=== PATIENT | female | born 1975 | race Caucasian/White ===

== ENCOUNTER 2016-11-26 16:46 | Emergency (ER) | payer OTHER ==
[~2016-11-26] VITALS: Ht 160 cm; Wt 56.7 kg
[~2016-11-26 16:46] MED LIST: AUGMENTIN 875-1 EACH PO; IBUPROFEN800 M1 PO
--- NOTE | 2016-11-26 17:37 | ED GI/GU/ABDOMINAL COMPLAINT ---
History of Present Illness General Chief Complaint: Female Urogenital Problems Stated Complaint: 7 WEEKS ,C/O CRAMPING AND BLEEDING Source: patient Exam Limitations: no limitations Vital Signs & Intake/Output Vital Signs & Intake/Output Vital Signs Date Time Temp Pulse Resp B/P Pulse O2 O2 Flow FiO2 Ox Delivery Rate 11/26 2040 97.8 70 18 111/75 100 Room Air 11/26 1657 98.0 69 16 107/79 100 Room Air ED Intake and Output 11/27 0000 11/26 1200 Intake Total 0 Output Total Balance 0 Intake, Oral 0 Patient 125 lb Weight Allergies Coded Allergies: No Known Drug Allergies (05/08/16) Reconcile Medications Vit No.130/Iron/FA ( Tablet) 27 MG IRON-800 MCG TABLET 1 TAB PO DAILY (Reported) Triage Note: PT TO ED FOR ABD CRAMPING AND SPOTTING, PER PT SHE IS 7 WEEKS AND IS CONCERNED ABOUT A MISCARRIAGE. , OB IS [facility] [phone]. PT REPORTING ONE EPISODE OF SPOTTING THIS AM AND THEN ONE EPISODE LAST WEEK AFTER INTERCOURSE. Triage Nurses Notes Reviewed? yes ? Y Is pt currently ? No HPI: 41-year-old female, with one miscarriage approximately one year ago, currently proximally 7 weeks , last menstrual period was October 08, she took a home test and it was positive. She has yet to follow-up with her SHIPPING PROCESSOR and does not have a documented intrauterine as of yet. She had mild vaginal spotting with blood and mild lower back pain. She denies any abdominal or pelvic pain, no abnormal discharge. She has no fever or flulike illness. No previous pelvic surgeries or abdominal surgeries. ([address]) Past History Travel History Traveled to [place] past 21 day No Medical History Any Pertinent Medical History? none Neurological: NONE EENT: NONE Cardiovascular: NONE Respiratory: NONE Gastrointestinal: NONE Hepatic: NONE Renal: NONE Musculoskeletal: NONE Psychiatric: NONE Endocrine: NONE Other Medical Hx: Miscarriage Surgical History Surgical History: none Psychosocial History What is your primary language Chinese Tobacco Use: Never used ETOH Use: denies use Illicit Drug Use: denies illicit drug use Family History Hx Contributory? No ([address]) Review of Systems Review of Systems Constitutional: Reports: see HPI. EENTM: Reports: no symptoms. Respiratory: Reports: no symptoms. Cardiovascular: Reports: no symptoms. GI: Reports: no symptoms. Genitourinary: Reports: no symptoms. Musculoskeletal: Reports: no symptoms. Skin: Reports: no symptoms. Neurological/Psychological: Reports: no symptoms. Hematologic/Endocrine: Reports: no symptoms. Immunologic/Allergic: Reports: no symptoms. All Other Systems: Reviewed and Negative ([address]) Physical Exam Physical Exam Respiratory: normal breath sounds, chest non-tender, no respiratory distress Cardiovascular: regular rate/rhythm Gastrointestinal: normal bowel sounds, soft, non-tender, no organomegaly Comments: Well-developed well-nourished no apparent distress. HEENT: Atraumatic, extraocular motion intact Neck: Supple, no lymphadenopathy Back: Nontender Respiratory: No respiratory distress Extremities: No edema, full range of motion Neuro: Alert and oriented x3 Psych: Mood affect normal, normal memory normal judgment. Skin: Warm and dry, no rash on exposed skin Core Measures ACS in differential dx? No Severe Sepsis Present: No Septic Shock Present: No ([address]) Progress Differential Diagnosis: AAA, AMI, appendicitis, biliary colic, bowel obstruction , colon cancer, cholecystitis, diverticulitis, ectopic , endometritis, esophageal varices, gastritis, hepatitis, hernia, hemorrhoids, ischemic bowel, inflamm bowel dis, intrauterine , kidney stone, Kristine-Luciana tear, ovarian cyst, ovarian torsion, pancreatitis, PID/cervicitis, peptic ulcer, PUD/ GERD, perforated viscous, SBO, threatened AB, UTI/pyelo Plan of Care: Orders Procedure Date/time Status HUMAN BETA HCG TITRE 11/26 1731 Complete COMPREHENSIVE METABOLIC PANEL 11/26 173 Complete CBC WITHOUT DIFFERENTIAL 11/26 1730 Complete RHOGAM WORK-UP 11/26 173 Complete Laboratory Tests 11/26/16 1739: Anion Gap 10, Estimated GFR > 60, BUN/Creatinine Ratio 17.1, Glucose 83, Calcium 9.4, Total Bilirubin 0.5, AST 14, ALT 27, Alkaline Phosphatase 78, Total Protein 6.9, Albumin 4.0, Globulin 2.9, Albumin/Globulin Ratio 1.4, Beta HCG, Quant 35275.0, CBC w Diff NO MAN DIFF REQ, RBC 4.76, MCV 91.4, MCH 30.6, RDW 12.9, MPV 9.3, Gran % 71.5, Lymphocytes % 20.0 L, Monocytes % 7.5, Eosinophils % 0.8, Basophils % 0.2, Absolute Granulocytes 7.6 H, Absolute Lymphocytes 2.1, Absolute Monocytes 0.8 H, Absolute Eosinophils 0.1, Absolute Basophils 0, PUBS MCHC 33.4 Diagnostic Imaging: Viewed by Me: Ultrasound. Discussed w/RAD: Ultrasound. Radiology Impression: PATIENT: RICHARD WHITEHEAD PRESENT AGE: 41 PATIENT ACCOUNT NO: [id number] : 77 LOCATION: [facility] ORDERING PHYSICIAN: MARTINA HOYOS SERVICE DATE: 11/26/16 EXAM TYPE: US - US TRANSVAG EXAMINATION: US TRANSVAGINAL CLINICAL INFORMATION: with pain and bleeding. Evaluate for an ectopic . LMP: 2015 COMPARISON: No relevant prior studies are available for comparison. TECHNIQUE: Multiple images of the gravid uterus were obtained transabdominally and transvaginally utilizing real-time ultrasonography. Transvaginal ultrasound was required to better visualize the uterus and ovaries. FINDINGS: An early intrauterine is identified. The crown-rump length measures 0.9 cm, corresponding to a gestational age of 7 weeks 0 days with an NAGA of 07/15/2017. The heart rate is identified at 135 bpm. The yolk sac is unremarkable and measures 0.3 cm. There is no evidence of subchorionic hemorrhage. The cervical length measures 4.1 cm. The right ovary is sonographically unremarkable and measures 3.7 x 2.4 x 3.1 cm (volume = 14.3 mL). There is Doppler detectable vascular flow to the right ovary. The left ovary is sonographically unremarkable and measures 3.2 x 1.6 x 2.4 cm (volume = 6.3 mL). There is Doppler detectable vascular flow to the left ovary. There is no free fluid in the pelvis. IMPRESSION: Single live IUP with an estimated gestational age of 7 weeks 0 days with an NAGA of 07/15/2017. The heart rate is 135 bpm. DICTATED BY: VIRGINIA RAMIREZ MD DATE Initial ED EKG: none Comments: B-HCG 15,000. Ultrasound ordered -single IUP noted, patient is comfortable on reevaluation, discussed with the possibility of miscarriage even though labs and ultrasound are appropriate giving patient states. She will follow-up with her SHIPPING PROCESSOR on Sunday as scheduled. PT SEEN BY DR CALDERON WELL. ([address]) Departure Departure Disposition: HOME OR SELF CARE Condition: Stable Clinical Impression Primary Impression: Threatened miscarriage Referrals: PATIENT HAS NO PRIMARY CARE DR (PCP/Family) Additional Instructions: follow-up with your SHIPPING PROCESSOR doctor on Sunday as scheduled Return with worsening pelvic pain, cramping sensation, vaginal bleeding. Rest avoid strenuous physical activity or heavy lifting Departure Forms: Customer Survey General Discharge Information ([address]) PA/ELECTROLYSIST Co-Sign Statement Statement: ED Attending supervision documentation- [] I saw and evaluated the patient. I have also reviewed all the pertinent lab results and diagnostic results. I agree with the findings and the plan of care as documented in the PA's/ELECTROLYSIST's documentation. [x] I have reviewed the ED Record and agree with the PA's/ELECTROLYSIST's documentation. [] Additions or exceptions (if any) to the PAs/ELECTROLYSIST's note and plan are summarized below: [] (KVNG DEGROOT,ALYCIA Govea)
[2016-11-26] MEDS ORDERED: PRENATAL TABLE1 EAC2 PO (17:47)
[2016-11-26 17:50] LABS: ABSOLUTE BASOPHIL COUNT 0 /CUMM (0.0-0.2); ABSOLUTE EOSINOPHIL COUNT 0.1 /CUMM (0.0-0.7); ABSOLUTE GRANULOCYTE CT 7.6 /CUMM (1.4-6.5); ABSOLUTE LYMPH COUNT 2.1 /CUMM (1.2-3.4); ABSOLUTE MONOCYTE COUNT 0.8 /CUMM (0.10-0.60); BASOPHIL % 0.2 % (0.0-2.0); EOSINOPHIL % 0.8 % (0-5); GRANULOCYTE % 71.5 % (42.2-75.2); HEMATOCRIT 43.5 % (37-47); MEAN CORPUSCULAR HGB 30.6 PG (27.0-31.0); MEAN CORPUSCULAR HGB CONC 33.4 G/DL (33.0-37.0); MEAN CORPUSCULAR VOLUME 91.4 FL (81.0-99.0); MEAN PLATELET VOLUME 9.3 FL (7.4-10.4); PLATELET COUNT 207 /CUMM (130-400); RBC DISTRIBUTION WIDTH 12.9 % (11.5-14.5); RED BLOOD CELL CT 4.76 /CUMM (4.20-5.40); WHITE BLOOD CELL COUNT 10.6 /CUMM (4.8-10.8)
--- NOTE | 2016-11-26 20:28 | ULTRASOUND REPORT ---
EXAMINATION: US TRANSVAGINAL CLINICAL INFORMATION: with pain and bleeding. Evaluate for an ectopic . LMP: 10/08/2016 COMPARISON: No relevant prior studies are available for comparison. TECHNIQUE: Multiple images of the gravid uterus were obtained transabdominally and transvaginally utilizing real-time ultrasonography. Transvaginal ultrasound was required to better visualize the uterus and ovaries. FINDINGS: An early intrauterine is identified. The crown-rump length measures 0.9 cm, corresponding to a gestational age of 7 weeks 0 days with an NAGA of 07/15/2017. The heart rate is identified at 135 bpm. The yolk sac is unremarkable and measures 0.3 cm. There is no evidence of subchorionic hemorrhage. The cervical length measures 4.1 cm. The right ovary is sonographically unremarkable and measures 3.7 x 2.4 x 3.1 cm (volume = 14.3 mL). There is Doppler detectable vascular flow to the right ovary. The left ovary is sonographically unremarkable and measures 3.2 x 1.6 x 2.4 cm (volume = 6.3 mL). There is Doppler detectable vascular flow to the left ovary. There is no free fluid in the pelvis. IMPRESSION: Single live IUP with an estimated gestational age of 7 weeks 0 days with an NAGA of 07/15/2017. The heart rate is 135 bpm.
[2016-11-26 20:41] VITALS: BP 111/75
== END 2016-11-26 20:42 ==
LOC: ERH 16:46
PROVIDERS: Physician Assistant Surgical
DX: O20.0 Threatened abortion (principal); Z3A.01 Less than 8 weeks gestation of pregnancy
CPT/HCPCS: 76817

== ENCOUNTER 2017-03-03 22:56 | Emergency (ER) | payer OTHER ==
[~2017-03-03] VITALS: Ht 157.5 cm; Wt 59.0 kg
[~2017-03-03 22:56] MED LIST changes: +PRENATAL TABLE1 EAC2 PO
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
--- NOTE | 2017-03-04 01:21 | RADIOLOGY REPORT ---
EXAMINATION: 3 views of the left third digit CLINICAL INFORMATION: Ecchymosis of the base of the distal phalanx of the middle finger. COMPARISON: None FINDINGS: No fracture. The bony articulations are maintained. There are no radiopaque foreign bodies. IMPRESSION: No acute osseous findings.
[2017-03-04] MEDS ORDERED: DICLOFENAC POTA50 M1 PO (01:41)
[2017-03-04 01:46] VITALS: BP 118/79
== END 2017-03-04 01:47 ==
LOC: ERH 22:56
DX: S63.613A Unspecified sprain of left middle finger, initial encounter (principal); T14.8 Other injury of unspecified body region; Y04.0XXA Assault by unarmed brawl or fight, initial encounter; Y93.9 Activity, unspecified; Y92.9 Unspecified place or not applicable
CPT/HCPCS: 73140-LT